=== PATIENT | male | born 1985 | race Caucasian/White ===

== ENCOUNTER 2022-05-22 14:19 | Emergency (ER) | payer OTHER ==
[~2022-05-22] VITALS: Ht 170.2 cm; Wt 75.0 kg
[2022-05-22 14:34] VITALS: BP 106/67; TEMP 98.1
[2022-05-22] MEDS ORDERED: MEDROL 4MG DOSPA4 MG PO (16:35)
[2022-05-22] MEDS ORDERED: FLEXERIL 1010 MG/TAB PO (16:35)
[2022-05-22] MEDS ORDERED: NORCO 325 MG-51 TAB PO (16:36)
[2022-05-22 16:45] VITALS: PULSE 70
== END 2022-05-22 16:47 | disposition home or self-care (01) ==
LOC: COL.ER 14:19
DX: S39.012A Strain of muscle, fascia and tendon of lower back, initial encounter (principal); Z28.311 Partially vaccinated for COVID-19; X50.0XXA Overexertion from strenuous movement or load, initial encounter
CPT/HCPCS: J1885